=== PATIENT | female | born 1985 | race Two or more races ===

== ENCOUNTER 2024-04-18 10:17 | Observation (INO) | payer MEDICAID ==
[~2024-04-18] VITALS: Ht 165.1 cm; Wt 129.7 kg
[2024-04-18] MEDS: TERBUTALINE SULFATE 1 MG/ML 1ML VIAL SC SCH (11:33)
== END 2024-04-18 12:33 | disposition home or self-care (01) ==
LOC: LDRP 10:17
PROVIDERS: ADMIT Obstetrics & Gynecology; ATTEND Obstetrics & Gynecology
DX: O62.9 Abnormality of forces of labor, unspecified (principal); Z3A.36 36 weeks gestation of pregnancy
CPT/HCPCS: 59025; 81002; 94760; 96372; G0378; J3105